=== PATIENT | female | born 1985 | race Hispanic/Latino ===

== ENCOUNTER 2018-12-20 12:43 | Observation (INO) | payer OTHER ==
[~2018-12-20] VITALS: Ht 167.6 cm; Wt 108.4 kg
[2018-12-20 13:05] LABS: APPEARANCE,URINE Clear (CLEAR); BILIRUBIN,URINE Negative (NEGATIVE); COLOR,URINE Yellow (YELLOW); GLUCOSE, URINE (UA) >=1000 mg/dL (NEGATIVE); KETONES,URINE Trace mg/dL (NEGATIVE); LEUKOCYTE ESTERASE ,URINE Negative (NEGATIVE); NITRATE,URINE Negative (NEGATIVE); OCCULT BLOOD,URINE Moderate (NEGATIVE); PH,URINE 5.5 (5.0-8.0); PROTEIN,URINE >=1000 (NEGATIVE); UROBILINOGEN,URINE 0.2 mg/dL (0.2-1.0)
[2018-12-20 13:14] LABS: BACTERIA,URINE Rare /HPF (None Seen); RBC,URINE 0-1 /HPF (0-1)
[2018-12-20 13:15] LABS: HYALINE CASTS, URINE 0-1 /LPF (0-1 /LPF); SQUAMOUS EPITHELIAL CELL,UR Rare /HPF (0-2)
[2018-12-20] MEDS ORDERED: ACETAMINOPHEN 325 MG TAB PO PRN (15:45)
[2018-12-20] MEDS ORDERED: ACETAMINOPHEN 325 MG TAB ONE (15:58)
== END 2018-12-20 17:16 | disposition home or self-care (01) ==
LOC: EDH 12:43 → LDH 12:44
PROVIDERS: ADMIT Specialist; ATTEND Specialist
DX: O26.892 Other specified pregnancy related conditions, second trimester (principal); R10.30 Lower abdominal pain, unspecified; Z3A.23 23 weeks gestation of pregnancy
CPT/HCPCS: 36415; 76805; 81001; 86850; 86900; 86901; 99284; G0378 ×5